=== PATIENT | male | born 2000 | race Caucasian/White ===

== ENCOUNTER 2019-12-16 20:11 | Emergency (ER) | payer SELFPAY ==
[2019-12-16 20:15] VITALS: PULSE 79; RESP 15; TEMP 37; O2SAT 96; BMI 18.8
[2019-12-16 20:21] VITALS: BP 124/79; PULSE 79; RESP 15; TEMP 37; O2SAT 96
--- NOTE | 2019-12-16 20:35 | PC.NURSE ---
patient provided saftey scrubs and socks. Patient changed out of all of his own cloths and changed into saftey clothing. Patient did not respond verbally to any questions, he loss prevention associate very slow, avoiding eye contact, looking down at the floor and slowly changed into saftey clothing. 2 bags of patients belongings locked up behind nurse station labled with patient label.
--- NOTE | 2019-12-16 20:49 | ED.PSYCH ---
HPI - Psych General Chief Complaint: Psychiatric Symptoms Stated Complaint: father states mental health crisis Time Seen by Provider: 12/16/19 20:13 Source: patient and family Mode of arrival: Ambulatory Limitations: other (Patient unwillingness to participate in exam) History of Present Illness HPI Narrative: Patient was not forthcoming in providing much HPI. He was brought to the emergency department by his biologic father and stepmother. They state that within the past 24-48 hours the patient took in Uber ride from [place] to the local area to [facility]. At some point last evening the patient made text to his biologic mother. I am unsure of the content of these text. I have asked the biologic father to contact the patient's mother to see if we can obtain these text. Apparently the patient slept at his biologic mother's house last evening. Is reported by his father and stepmother here in the ER that the patient has not spoken in the past 24 hours if not longer than that. They state that he has not eaten anything in the past 24 hours as well. The stepmother states that the patient has made comments to her that he has had thoughts of killing himself. I asked both the biologic father and stepmother to right their statements down which they have done. Patient has had 1 involuntary admission to mental health facility approximately 4 years ago. They also state that 1 year ago he was admitted to [facility] for an extended period of time for suicidal ideation/depression. They state that over the past year the patient has been living in [place]. It appears that he has been high functioning. Has a job. Has a girlfriend. Has not been on any medications or seen any mental health provider in the past year. Unsure why this is the case. Patient was brought in for concerns of his mental health. When I asked the patient any questions he only shakes his head yes or no. He shook his head no when asked if he was any pain. He shook his head yes when I asked if he knew where he was. He shook his head no when I asked if he drank any alcohol or did any other drugs. He shrugged his shoulders when asked him if he had thoughts of hurting himself. He had no response when I asked him if he was willing to have us find a mental health facility for him. Related Data Home Medications Medication Instructions Recorded Confirmed No Known Home Medications 12/17/19 12/17/19 Allergies Allergy/AdvReac Type Severity Reaction Status Date / Time No Known Drug Allergies Allergy Verified 12/16/19 20:46 Review of Systems Review of Systems ROS Unobtainable: Unobtainable due to mental status/LOC Patient History Medical History Depression (Acute) Social History Smoking Status: Never smoker Smoking Status: Never smoker alcohol intake frequency: 0-2 drinks per day Substance Use Type: marijuana Exam Initial Vital Signs Initial Vital Signs: Vital Signs Temperature 98.6 F 12/16/19 20:15 Pulse Rate 79 12/16/19 20:15 Respiratory Rate 15 12/16/19 20:15 Pulse Oximetry 96 12/16/19 20:15 Const General: No cooperative, healthy appearing, well developed, well groomed, No acute distress, No disheveled, No frail appearing, No ill appearing and well hydrated Nutritional Appearance: well nourished, not cachectic, not malnourished and not thin HENMT Head: normal to inspection and normocephalic Resp Effort & Inspection: normal respiratory effort Auscultation: clear to auscultation bilaterally Cardio Rate: regular rate Rhythm: regular rhythm GI Inspection: non-distended Palpation: soft Skin Lesions: no lesions Rashes: no rashes Neuro General: awake Gait: normal gait Extrem General: capillary refill normal and No edema Psych Appearance: grossly normal, well kempt and not disheveled Mental Status: other Speech and Movement: catatonic, mute and not restless Mood: other Affect: indifferent and other (Flat affect) Attitude: not cooperative, not belligerent, avoids eye contact and refuses to answer Thought Content: other (Unable to evaluate) Course Orders Ordered: ED Orders 12/16/19 21:03 Urine Drug Screen, Rapid Stat 12/16/19 21:04 Acetaminophen Stat Complete Blood Count AUTO DIFF Stat Comprehensive Metabolic Panel Stat Ethanol (ETOH) Stat Salicylate Stat Thyroid Stimulating Hormone Stat 12/16/19 23:24 EKG-12 Lead Stat 12/17/19 03:20 Consult to [facility] - Net Ui Developer Stat Vital Signs Vital signs: Vital Signs - 8 hr 12/17/19 00:00 12/17/19 04:04 Temperature 97.5 F L 98.0 F Pulse Rate 70 70 Respiratory Rate 14 16 Blood Pressure [Right Arm] 84/52 L 101/62 Pulse Oximetry 97 99 MDM - Psych Lab Data Attestation: I reviewed the patient's lab results. Result diagrams: 12/16/19 21:04 12/16/19 21:04 Labs: Lab Results 12/16/19 12/16/19 12/16/19 Range/Units 21:03 21:04 21:04 WBC 9.1 (4.5-11.0) X10^3/uL RBC 4.77 (4.5-5.9) X10^6/uL Hgb 14.8 (13.5-17.5) g/dL Hct 43.0 (41-53) % MCV 90.1 (80-100) fL MCH 30.9 (26-34) PG MCHC 34.3 (30-36) % RDW 13.6 (11.6-14.8) % Plt Count 220 (150-400) X10^3/uL Neut % (Auto) 76.6 H (50-75) % Lymph % (Auto) 16.8 L (25-40) % [place] % (Auto) 5.3 (3-14) % Eos % (Auto) 0.8 L (2-4) % Baso % (Auto) 0.5 (0-2) % Neut # (Auto) 7000 (5077-0946) /uL Lymph # (Auto) 1500 (2096-0032) /uL [place] # (Auto) 500 (0-900) /uL Eos # (Auto) 100 (0-450) /uL Baso # (Auto) 0 (0-100) /uL Sodium 139 (137-145) mmol/L Potassium 4.5 (3.4-5.1) mmol/L Chloride 102 (98-107) mmol/L Carbon Dioxide 22 (22-32) mmol/L BUN 22 H (9-20) mg/dL Creatinine 0.80 (0.66-1.25) mg/dL Estimated GFR > 60.0 (>60) mL/min BUN/Creatinine Ratio 27.5 H (6-22) Glucose 64 L (70-100) mg/dL Calcium 9.8 (8.4-10.2) mg/dL Total Bilirubin 0.6 (0.2-1.3) mg/dL AST 24 (17-59) IU/L ALT 23 (<50) IU/L Alkaline Phosphatase 76 (38-126) U/L Total Protein 8.5 H (6.3-8.2) g/dL Albumin 4.9 (3.5-5.0) g/dL Globulin 3.6 (1.7-4.1) g/dL Albumin/Globulin Ratio 1.4 (1.0-2.8) TSH (0.47-4.68) uIU/mL Salicylates < 1.0 (<20) mg/dL U Opiates 300ng/mL cut Negative (Negative) Ur Oxycodone Screen Negative (Negative) Urine Methadone Screen Negative (Negative) Acetaminophen < 10 L (10-30) ug/mL Ur Barbiturates Screen Negative (Negative) U Tricyclic Antidepress Negative (Negative) Ur Phencyclidine Scrn Negative (Negative) Ur Amphetamines Screen Negative (Negative) U Methamphetamines Scrn Negative (Negative) Ur MDMA Scrn (Ecstasy) Negative (Negative) U Benzodiazepines Scrn Negative (Negative) Urine Cocaine Screen Negative (Negative) U Marijuana (THC) Screen Positive H (Negative) Ethyl Alcohol < 10 ( - 10) mg/dL 12/16/19 Range/Units 21:04 WBC (4.5-11.0) X10^3/uL RBC (4.5-5.9) X10^6/uL Hgb (13.5-17.5) g/dL Hct (41-53) % MCV (80-100) fL MCH (26-34) PG MCHC (30-36) % RDW (11.6-14.8) % Plt Count (150-400) X10^3/uL Neut % (Auto) (50-75) % Lymph % (Auto) (25-40) % [place] % (Auto) (3-14) % Eos % (Auto) (2-4) % Baso % (Auto) (0-2) % Neut # (Auto) (9871-8137) /uL Lymph # (Auto) (5492-9663) /uL [place] # (Auto) (0-900) /uL Eos # (Auto) (0-450) /uL Baso # (Auto) (0-100) /uL Sodium (137-145) mmol/L Potassium (3.4-5.1) mmol/L Chloride (98-107) mmol/L Carbon Dioxide (22-32) mmol/L BUN (9-20) mg/dL Creatinine (0.66-1.25) mg/dL Estimated GFR (>60) mL/min BUN/Creatinine Ratio (6-22) Glucose (70-100) mg/dL Calcium (8.4-10.2) mg/dL Total Bilirubin (0.2-1.3) mg/dL AST (17-59) IU/L ALT (<50) IU/L Alkaline Phosphatase (38-126) U/L Total Protein (6.3-8.2) g/dL Albumin (3.5-5.0) g/dL Globulin (1.7-4.1) g/dL Albumin/Globulin Ratio (1.0-2.8) TSH 0.15 L (0.47-4.68) uIU/mL Salicylates (<20) mg/dL U Opiates 300ng/mL cut (Negative) Ur Oxycodone Screen (Negative) Urine Methadone Screen (Negative) Acetaminophen (10-30) ug/mL Ur Barbiturates Screen (Negative) U Tricyclic Antidepress (Negative) Ur Phencyclidine Scrn (Negative) Ur Amphetamines Screen (Negative) U Methamphetamines Scrn (Negative) Ur MDMA Scrn (Ecstasy) (Negative) U Benzodiazepines Scrn (Negative) Urine Cocaine Screen (Negative) U Marijuana (THC) Screen (Negative) Ethyl Alcohol ( - 10) mg/dL ECG Data Attestation: I personally reviewed and interpreted this ECG as follows: Prior ECG tracings: not available for review Interpretation: Sinus bradycardia Ventricular rate of 53 Normal axis Normal QRS Normal QTC No ST T wave changes MDM Narrative Medical decision making narrative: Patient not willing to provide any specific answers to mental health questions. He did shake his head yes when I asked him if it was okay if we marta some blood. He did not provide any response when asked him if it was okay if we try to find him a in patient facility. I feel that this makes him involuntary given the evidence provided by his biologic father and stepmother. Please see their statements written on other notes. Patient's labs positive for THC. TSH is low however he has no signs of hyperthyroidism. This is not an emergent issue and I feel is unrelated to his situation today this situation should be followed up by his primary doctor at a later time. Hyperthyroidism would be more associated with constantine, tachycardia, weight loss which patient does not express. He is more depressed which could be more of a symptom of hypothyroidism opposite of what his labs suggest today. Patient is not clinically malnourished despite concerns from his father about not eating for the past 24 hours. Patient is medically clear and ready to be evaluated by [facility]. 1227 AM: Patient is now sitting up in bed. He is eating a sandwich and some pudding. He has been talking to the CAKE FORMER it has been his watch. I went in and talked with the patient. He states that he is feeling ?a little bit ?better. He states that his current address is [facility]. When I asked him if he could tell me more about the situation that brought him here he became very quiet again and said ?not right now ?. 0328 AM: Patient was evaluated by [facility]. Apparently was much more cooperative and open speaking with them. He did state that he was willing to be admitted voluntarily. [facility] does have a bed except some however they require insurance pre-approval. Social work consult placed. Care turned over to day provider for disposition once evaluated by social Work Discharge Plan Departure Patient Disposition: Xfer Psychiatric Hosp Clinical Impression: Depression Qualifiers: Depression Type: unspecified Qualified Code(s): F32.9 - Major depressive disorder, single episode, unspecified
--- NOTE | 2019-12-16 21:00 | CM.MNRNOTE ---
patient lying on gurney with pillow on his chest
--- NOTE | 2019-12-16 21:05 | PC.NURSE ---
pt is tolerating lab draw
--- NOTE | 2019-12-16 21:07 | PC.NURSE ---
Unable to contract for safety. Pt indicated through nodding that he does not want treatment and is here because his father brought him here. entry level project coordinator phoned to request a sitter for NOC shift, Wenceslao sent out for stat sitter. Pt on Q15 minute checks for safety.
--- NOTE | 2019-12-16 21:10 | PC.NURSE ---
Pt given snacks, water, juice. Indicates that he has no food preferences/allergies.
[2019-12-16 21:44] LABS: Add Manual Diff / Slide Review NO; Basophils Absolute Auto 0 /uL (0-100); Basophils Percent Auto 0.5 % (0-2); Eosinophils Absolute Auto 100 /uL (0-450); Eosinophils Percent Auto 0.8 % (2-4); Hemoglobin 14.8 g/dL (13.5-17.5); Lymphocytes Absolute Auto 1500 /uL (1100-4500); Lymphocytes Percent Auto 16.8 % (25-40); Mean Corpuscular HGB Conc 34.3 % (30-36); Mean Corpuscular Hemoglobin 30.9 PG (26-34); Mean Corpuscular Volume 90.1 fL (80-100); Monocytes Absolute Auto 500 /uL (0-900); Monocytes Percent Auto 5.3 % (3-14); Neutrophils Absolute Auto 7000 /uL (1500-7000); Neutrophils Percent Auto 76.6 % (50-75); Platelet Count 220 X10^3/uL (150-400); Red Blood Cell Count 4.77 X10^6/uL (4.5-5.9); Red Cell Distribution Width 13.6 % (11.6-14.8); White Blood Cell Count 9.1 X10^3/uL (4.5-11.0)
--- NOTE | 2019-12-16 21:46 | PC.NURSE ---
I asked pt to give us a urine sample he shook his head yes. Urine sent down to the lab for RDS. Pt did not reply verbally to any questions. Pt given warm blankets
[2019-12-16 21:56] LABS: UR Morphine/Opiate cutoff 300 Negative (Negative); Ur Creatinine Normal (Normal); Ur Specific Gravity Normal (Normal); Urine Amphetamines Negative (Negative); Urine Barbiturates Negative (Negative); Urine Benzodiazepines Negative (Negative); Urine Cocaine Negative (Negative); Urine MDMA Negative (Negative); Urine Methadone Negative (Negative); Urine Methamphetamines Negative (Negative); Urine Oxycodone Negative (Negative); Urine Phencyclidine Negative (Negative); Urine Tetrahydrocannabinol Positive (Negative); Urine Tricyclic Antidepressant Negative (Negative); Urine pH Normal (Normal)
[2019-12-16 21:56] LABS: Acetaminophen < 10 ug/mL (10-30); Alanine Aminotransferase 23 IU/L (<50); Albumin 4.9 g/dL (3.5-5.0); Albumin Globulin Ratio 1.4 (1.0-2.8); Alkaline Phosphatase 76 U/L (38-126); Aspartate Aminotransferase 24 IU/L (17-59); BUN Creatinine Ratio 27.5 (6-22); Bilirubin Total 0.6 mg/dL (0.2-1.3); Blood Urea Nitrogen 22 mg/dL (9-20); Calcium 9.8 mg/dL (8.4-10.2); Carbon Dioxide 22 mmol/L (22-32); Chloride 102 mmol/L (98-107); Estimated Glomerular Filt Rate > 60.0 mL/min (>60); Ethanol (ETOH) < 10 mg/dL; Globulin 3.6 g/dL (1.7-4.1); Glucose 64 mg/dL (70-100); HEMOLYSIS < 15 (0-50); Potassium 4.5 mmol/L (3.4-5.1); Salicylate < 1.0 mg/dL (<20); Sodium 139 mmol/L (137-145); Total Protein 8.5 g/dL (6.3-8.2)
--- NOTE | 2019-12-16 22:00 | PC.NURSE ---
pt lying on gurney with head under blankets
[2019-12-16 22:27] LABS: Thyroid Stimulating Hormone 0.15 uIU/mL (0.47-4.68)
--- NOTE | 2019-12-16 22:34 | PC.NURSE ---
pt lying on gurney with blanket over his head. Lights are dimmed. Pt is under constant observation by this INSTALLER HELPER
[2019-12-17] VITALS: BP 84/52; PULSE 70; RESP 14; TEMP 36.4; O2SAT 97
--- NOTE | 2019-12-17 00:08 | PC.NURSE ---
Pt is calm and has not expressed that he wants to harm himself at this time. Pt asked TRANSFORMER COIL WINDER if he was allowed to go anywhere else (outside Pt ED room) and TRANSFORMER COIL WINDER informed patient that the Nurse would be in to speak with him about his condition and what was expected to happen next. Pt was pleasant and willing to talk. Pt is now sitting up in a high fowlers position. Pt is drinking water, eating string cheese and has been given crayons and paper.
--- NOTE | 2019-12-17 00:09 | PC.NURSE ---
Pt is now speaking. The sitter notified me that the pt was asking about the plan of care. When I went in to speak to him, he stated, just curious. Pt updated to plan: that DCR should arrive within an hour, will speak with him, and will form a plan from there. Pt agreeable. Pt has not eaten any of the snacks provided earlier but has had some water to drink.
--- NOTE | 2019-12-17 01:00 | PC.NURSE ---
Pt is speaking with the DCR, Edward. Pt is sitting in high fowelers and has finished eating his string cheese, vanilla pudding, and half sandwich. He has drank all of his grape juice and still has about 100cc of water left. Pt appears calm and willing to speak with DCR.
--- NOTE | 2019-12-17 02:12 | PC.NURSE ---
Pt was offered oral care accessaries. All doors are open (no doors locked) and pt is up and is still under supervision with oral care. 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 Pt awake and oriented.
--- NOTE | 2019-12-17 03:00 | PC.NURSE ---
Pt is sitting in high fowlers position. Pt is calm and was given his cell phone and [employer] switch after speaking with Edward PRINGLE. Pt has finished most of the food newly requested. Pt is alert and oriented. All doors are open and pt is till under supervision.
--- NOTE | 2019-12-17 03:16 | PC.NURSE ---
I received a call from Arin at [facility] who stated that the patient is approved pending approval from Medicaid. They will need the name of the person and how many days authorized prior to giving an ETA.
--- NOTE | 2019-12-17 03:22 | PC.NURSE ---
pt stretching in room
--- NOTE | 2019-12-17 03:38 | PC.NURSE ---
pt watching movie on phone. Door is open and lights are off
[2019-12-17 04:04] VITALS: BP 101/62; PULSE 70; RESP 16; TEMP 36.7; O2SAT 99
--- NOTE | 2019-12-17 04:05 | PC.NURSE ---
Addendum entered by Brie Wolf R.N. 12/17/19 11:02: Patient woken up for CBG check, CBG 65, patient eating breakfast now. CLEAN UP PERSON in to speak with patient. Original Note: Pt is sitting up listening to music on his phone through his earphones. Pt states that he will try to get some sleep now that DCR, Edward, has come back to speak one last time with him. Pt is alert and oriented. Pt is still under supervision and all doors are open.
--- NOTE | 2019-12-17 05:01 | PC.NURSE ---
Pt is attempting to sleep. Pt is currently left lateral. All doors are open and pt is still under supervision.
--- NOTE | 2019-12-17 08:15 | PC.NURSE ---
Addendum entered by Brie Wolf R.N. 12/17/19 12:32: Report called to [facility]. Addendum entered by Brie Wolf R.N. 12/17/19 12:24: Patient taken by ambulance staff for transport to [place]. Ambulance staff given patients two bags of belongings. Addendum entered by Brie Wolf R.N. 12/17/19 11:31: Patient awake, lying down, using cell phone. Patient ate his breakfast ambulated to bathroom. Patient updated by WILD LIFE PHOTOGRAPHER on plan for transfer to [place]. Addendum entered by Brie Wolf R.N. 12/17/19 09:08: Patient woke up for vitals and breakfast. Alert, oriented,calm, WILD LIFE PHOTOGRAPHER in to see patient. Original Note: Patient sleeping on left side, call light in reach. Continue 1:1 sitter.
[2019-12-17 08:34] VITALS: BP 107/62; PULSE 84; RESP 16
[2019-12-17 11:09] VITALS: BP 111/67; PULSE 55; RESP 16; TEMP 36.2
== END 2019-12-17 12:25 ==
PROVIDERS: Emergency Medicine; Emergency Provider Emergency Medicine
DX: F32.9 Major depressive disorder, single episode, unspecified (principal); R00.1 Bradycardia, unspecified
CPT/HCPCS: 36415; 80053; 80305; 80320; 80329; 82962; 84443; 85025; 93005; 99285; G0480

== ENCOUNTER 2025-09-26 13:42 | Emergency (ER) | payer OTHER, SELFPAY ==
[2025-09-26 13:46] VITALS: BP 121/79; PULSE 79; RESP 14; TEMP 36.7; O2SAT 100; BMI 20.3
--- NOTE | 2025-09-26 14:00 | ED_ITS ---
<Statement entered by Darron Vaz, DO - 09/27/25 07:48>
--- NOTE | 2025-09-26 14:00 | ED.PSYCH ---
HPI - Psych General Chief Complaint: Psychiatric Symptoms Stated Complaint: Mental Eval Time Seen by Provider: 09/26/25 13:46 Source: patient Mode of arrival: Ambulatory History of Present Illness HPI Narrative: Jameson Gray is a very pleasant 25-year-old male with a past medical history of depression with 2 prior suicide attempts who presents to the emergency department for concern of his mental health. He is not having an active suicidal plan. The patient lives on [address] [facility] with his mom and sister. He has struggled with severe depression since he was 13 years old and he has attempted suicide in the past twice by attempting to jump off a [place]. He did not carry out either of these attempts however he was admitted to [facility] for both of these attempts. He reports that he typically does well inpatient but then he does not sustain this once he goes home. He has been off antidepressants since May of this year. He takes no medications currently. Over the last year he has dealt with the suicide of his stepfather and the of his godfather. He does not experience homicidal ideation or hallucinations. He did attempt to check himself into [place] a few days ago but at that time he did not have an active suicide plan so he did not meet the requirements. At this time he still does not have an active plan however he is very concerned that he is going to get to the point of a plan and would like to talk to a medial professional, he does not currently have a PCP. He has lots of suicidal thoughts and ideation always but they are getting more often. He denies any chest pain, shortness of breath, fevers, chills, flu-like symptoms. He is here with his sister. Related Data Home Medications ?Medication ?Instructions ?Recorded ?Confirmed No Known Home Medications 12/17/19 12/17/19 Allergies Allergy/AdvReac Type Severity Reaction Status Date / Time No Known Drug Allergies Allergy Verified 09/26/25 13:46 Review of Systems Review of Systems ROS Unobtainable: All systems reviewed & are unremarkable except as noted in HPI and below Patient History Medical History Depression Social History Smoking Status: Unknown if ever smoked Smoking Status: Unknown if ever smoked alcohol intake frequency: 0-2 drinks per day Exam Narrative Exam Narrative: GENERAL: 25 year old patient appears stated age. Well-developed patient, in no acute distress. HEAD: Atraumatic. Normocephalic. EYES: PERRL. Extraocular motions intact. No scleral icterus. No injection or drainage. ENT: Nose without bleeding, purulent drainage. Throat without erythema, tonsillar hypertrophy or exudate. Airway patent. NECK: Trachea midline. Cervical ROM intact. CARDIOVASCULAR: Regular rate and rhythm. RESPIRATORY: ?Nonlabored respirations. ?Speaking in clear, full sentences. ?Clear to auscultation. Breath sounds equal bilaterally. No wheezes, rales, or rhonchi. ? BACK: Nontender without deformity or crepitance. No flank tenderness. NEURO: AOx3. ?Clear speech. ?Moves all 4 extremities appropriately. SKIN: No rash or erythema of visible areas Initial Vital Signs Initial Vital Signs: Vital Signs Temperature 98.0 F 09/26/25 13:46 Pulse Rate 79 09/26/25 13:46 Respiratory Rate 14 09/26/25 13:46 Blood Pressure 121/79 09/26/25 13:46 Pulse Oximetry 100 09/26/25 13:46 Oxygen Delivery Method Room Air 09/26/25 13:46 Course Orders Ordered: ED Orders 09/26/25 13:58 Consult to FOREIGN EXCHANGE TRADER - Tierce Filler Routine 09/26/25 14:00 COVID19 -Nasal RAPID Stat 09/26/25 14:09 Urine Drug Screen, Rapid Stat 09/26/25 14:10 Complete Blood Count AUTO DIFF Stat Comprehensive Metabolic Panel Stat Ethanol (ETOH) Stat TSH w/ Reflex to FT4 Stat Vital Signs Vital signs: Vital Signs - 8 hr 09/26/25 13:46 09/26/25 18:06 Temperature 98.0 F Pulse Rate 79 71 Respiratory Rate 14 Blood Pressure 121/79 101/58 L Pulse Oximetry 100 100 Oxygen Delivery Method Room Air Room Air MDM - Psych Medical Records Attestation: I reviewed the patient's medical records. Lab Data 09/26/25 14:10 09/26/25 14:10 Labs: Lab Results 09/26/25 09/26/25 09/26/25 Range/Units 14:00 14:09 14:10 WBC 6.2 (4.5-11.0) X10^3/uL RBC 4.89 (4.5-5.9) X10^6/uL Hgb 15.1 (13.5-17.5) g/dL Hct 43.7 (41-53) % MCV 89.3 (80-100) fL MCH 30.9 (26-34) PG MCHC 34.6 (30-36) % RDW 12.5 (11.6-14.8) % Plt Count 264 (150-400) X10^3/uL Neut % (Auto) 57.4 (50-75) % Lymph % (Auto) 23.7 L (25-40) % Eagle % (Auto) 11.2 (3-14) % Eos % (Auto) 7.2 H (2-4) % Baso % (Auto) 0.5 (0-2) % Neut # (Auto) 3600 (8162-9436) /uL Lymph # (Auto) 1500 (2161-5883) /uL Eagle # (Auto) 700 (0-900) /uL Eos # (Auto) 400 (0-450) /uL Baso # (Auto) 0 (0-100) /uL Sodium 138 (137-145) mmol/L Potassium 4.1 (3.4-5.1) mmol/L Chloride 103 (98-107) mmol/L Carbon Dioxide 27 (22-32) mmol/L BUN 13 (9-20) mg/dL Creatinine 0.81 (0.66-1.25) mg/dL Estimated GFR > 60 (>60) mL/min BUN/Creatinine Ratio 16.0 (6-22) Glucose 97 (70-99) mg/dL Calcium 9.8 (8.4-10.2) mg/dL Total Bilirubin 0.3 (0.2-1.3) mg/dL AST 20 (17-59) IU/L ALT 14 (<50) IU/L Alkaline Phosphatase 65 (38-126) U/L Total Protein 8.6 H (6.3-8.2) g/dL Albumin 5.1 H (3.5-5.0) g/dL Globulin 3.5 (1.7-4.1) g/dL Albumin/Globulin Ratio 1.5 (1.0-2.8) TSH 0.87 (0.47-4.68) uIU/mL U Opiates 300ng/mL cut Positive H (Negative) Ur Oxycodone Screen Negative (Negative) Urine Methadone Screen Negative (Negative) Ur Barbiturates Screen Negative (Negative) U Tricyclic Antidepress Negative (Negative) Ur Phencyclidine Scrn Negative (Negative) Ur Amphetamines Screen Negative (Negative) U Methamphetamines Scrn Negative (Negative) Ur MDMA Scrn (Ecstasy) Negative (Negative) U Benzodiazepines Scrn Negative (Negative) Urine Cocaine Screen Negative (Negative) U Marijuana (THC) Screen Positive H (Negative) Urine pH Normal (Normal) Urine Specific Miles Normal (Normal) Ethyl Alcohol < 10 (<10) mg/dL Ur Creatinine Normal (Normal) SARS-CoV-2 (PCR) Negative (Negative) MDM Narrative Medical decision making narrative: 25-year-old male with a past medical history of depression with 2 prior suicide attempts who presents to the emergency department for concern of his mental health. He is dealing with vague suicidal ideation but no suicidal plan. Differential diagnosis includes but isn't limited to depression, anxiety, suicidal ideation, etc. On exam the patient is in no acute distress, nontoxic appearing, vital signs appropriate. He is not experiencing any pain or symptoms concerning for illness. This time he is not seeking inpatient psychiatric care but is interested in discussing possible resources with us here in the ED. We will obtain baseline psychiatric medical clearance. Patient and his sister who he lives with in addition to myself and the social media marketing analyst had extensive discussions and created an outpatient safety plan. At this time he is not interested in voluntary psychiatric admission and I also do not believe that he needs to be admitted involuntarily. He does not currently have an active suicidal plan and he feels hopeful with the follow up resources that our social media marketing analyst was able to provide him with. Discussed extensively with him and his sister that if he has any concerns to return to the ER at that time. He verbalized understanding all information and is agreeable with the plan. He is stable for discharge home. Discharge Plan Departure Patient Disposition: Home Clinical Impression: Depression Qualifiers: Depression Type: unspecified Qualified Code(s): F32.A - Depression, unspecified Instructions: DI for Suicidal Ideation-Adult Activity Restrictions/Additional Instructions: Dear Mr. Gray, Thank you so much for coming to the emergency room today. Your lab work today was all reassuring. As we discussed, we have set you up with an outpatient safety plan. It is very important to use these outpatient resources, and follow up with your therapist and a psychiatrist and a primary care doctor if and when possible. However we want you to understand that if you have any concerns, development of worsening depression or suicidal ideations, we woke me back to the emergency room to help facilitate inpatient treatment. Please follow up with your primary care doctor within the next 2-3 days for ER follow-up. (If you do not have a PCP you can call [phone]. ?to schedule an appointment with an [facility] Primary Care Provider) IF YOU DEVELOP ANY NEW OR WORSENING SYMPTOMS, RETURN TO THE ER! Please read the attached instructions, they highlight more specific treatments and interventions for you at home. Thank you for letting me participate in your care, Dotty Landon PA-C Prescriptions: No Action No Known Home Medications Stand Alone Forms: Patient Portal/API
[2025-09-26 14:24] LABS: Ur Specific Gravity Normal (Normal)
[2025-09-26 14:25] LABS: UR Morphine/Opiate cutoff 300 Positive (Negative); Urine MDMA Negative (Negative); Urine Methamphetamines Negative (Negative); Urine Tetrahydrocannabinol Positive (Negative); Urine Tricyclic Antidepressant Negative (Negative)
[2025-09-26 14:34] LABS: Alanine Aminotransferase 14 IU/L (<50); Albumin 5.1 g/dL (3.5-5.0); Albumin Globulin Ratio 1.5 (1.0-2.8); Alkaline Phosphatase 65 U/L (38-126); Blood Urea Nitrogen 13 mg/dL (9-20); Calcium 9.8 mg/dL (8.4-10.2); Carbon Dioxide 27 mmol/L (22-32); Chloride 103 mmol/L (98-107); Estimated Glomerular Filt Rate > 60 mL/min (>60); Ethanol (ETOH) < 10 mg/dL (<10); Globulin 3.5 g/dL (1.7-4.1); Glucose 97 mg/dL (70-99); HEMOLYSIS < 15 (0-50); Potassium 4.1 mmol/L (3.4-5.1); Sodium 138 mmol/L (137-145); Total Protein 8.6 g/dL (6.3-8.2)
[2025-09-26 14:36] LABS: Add Manual Diff / Slide Review NO; Hematocrit 43.7 % (41-53); Hemoglobin 15.1 g/dL (13.5-17.5); Lymphocytes Absolute Auto 1500 /uL (1100-4500); Mean Corpuscular HGB Conc 34.6 % (30-36); Mean Corpuscular Hemoglobin 30.9 PG (26-34); Mean Corpuscular Volume 89.3 fL (80-100); Platelet Count 264 X10^3/uL (150-400)
[2025-09-26 14:39] LABS: COVID19 -Nasal RAPID Negative (Negative)
[2025-09-26 15:08] LABS: TSH w/ Reflex to FT4 0.87 uIU/mL (0.47-4.68)
--- NOTE | 2025-09-26 17:30 | CM.SWNOTE ---
ED MECHANICAL PENCILS ASSEMBLER Assessment Note: MECHANICAL PENCILS ASSEMBLER - Multiple Games Dealer Assessment MECHANICAL PENCILS ASSEMBLER/Multiple Games Dealer Assessment Time Spent with Patient Start date 09/26/25 Visit Start Time 13:46 End date 09/26/25 Visit End Time 14:05 Total time Care 20 minutes Management spent on patient visit-in minutes Mental Health Screening Include Onset, Duration, Intensity Presenting Problem Patient presented to the ED via POV, requesting assistance with crisis stabilization and possible inpatient hospitalization. Precipitating Event( Patient explains they are experiencing similar symptoms s) from previous suicidal ideation/attempts in the past. Patient explains having an attempt in 2015 and in 2020, was hospitalized both times at [facility]. Patient explains they have been feeling triggered by anything suicide related seen in media due to their attempts and an upcoming anniversary of his stepfathers suicide last winter. Patient states his stepfather via self-inflicted gunshot wound in their family home; pt just moved back home to [facility] from [place] in May 2025. Patient also states his godfather in the last few weeks due to liver cancer. Patient reports he is not currently taking any medications for psych, stopped taking them in May. Patient acknowledges not having a good follow up after inpatient stays and continued MH management with therapy or medication. Patient Strengths Patient is communicative and cooperative during assessment. Current Behavioral Yaakov Whalen [facility] - ph# [phone]. Health Provider(s) Include Facility, Provider, Ph. # Psych. Hx Mental Patient states he dropped out of high school at 13yo Health and [employer] due to his severe depression and anxiety. Dependency Family Hx of None reported. Behavioral Abuse Psychiatric 2015 (14yo) - [facility] for near suicide attempt. Plan Hospitalizations ( was to jump off of [employer] on [facility]. date(s)/location) 2020 (20yo) - [facility] for neat suicide attempt. Plan was to jump off of [employer] on [facility]. Psychosocial Patient is a 25yo male, resident of [facility] with information & his mother and sister. Support Systems School/Work Patient is not currently working. Legal Concerns Legal Matters - None reported. Outstanding Issues Mental Status Orientation (Person/ AOx3 Place/Time) Affect (Congruent Anxious, flat, congruent with mood with Mood?) Thought Content - None reported, none identified during assessment. Specify/Describe Obsessions, Delusions, Hallucinations Thought Processes ( Logical, coherent Logical-Coherent- Goal Directed- Detailed-Tangential- Circumstantial- Logical-Disorganized -Thought Blocking) Speech (Normal-Slow- Normal Zbfjqlq-Gdmcu-Pcfo- Loud-Pressured) Motor (Normal- Normal Oxqhydptz-Pdmd-Qvrlk ) Insight (Good-Fair- Good Poor/Limited) Judgement (Good-Fair Fair -Poor/Limited) Impulse Control ( Adequate Adequate-Impaired) Memory (Immediate- Intact Recent-Remote, Impaired-Intact) Concentration ( Intact Intact-Impaired) Attention (Intact- Intact Impaired) Behavior ( Appropriate Appropriate- Inappropriate) Additional Comment Patient is calm, cooperative and communicative during assessment. Risk Assessment Suicidal Ideation ( Yes Plan) Homicidal Ideation ( No Plan) Comment [place]-SUICIDE SEVERITY RATING SCALE 1) Have you wished you were or wished you could go to sleep and not wake up? YES 2) Have you actually had any thoughts of killing yourself? YES 3) Have you been thinking about how you might do this? NO 4) Have you had these thoughts and had some intention of acting on them? NO 5) Have you started to work out or worked out the details of how to kill yourself? Do you intend to carry out this plan? NO 6) Have you ever done anything, started to do anything, or prepared to do anything to end your life? NO If YES, ask: Was this within the past three months? NO Intervention Intervention Reviewed chart and discussed with ED Provider pt's medical status and discharge needs. ED MECHANICAL PENCILS ASSEMBLER meets with patient. Patient endorses feeling uneasy with depressive symptoms as they are similar to what he experienced during last suicide attempts. Patient explains per the direction of their counselor, he called [facility] and they were screened as not meeting criteria for inpatient treatment. ED MECHANICAL PENCILS ASSEMBLER and patient discuss goals of care. Patient explains they are agreeable to receive inpatient behavioral health hospitalization at this time. At this time, it is the opinion of this MECHANICAL PENCILS ASSEMBLER that patient would benefit from inpatient psychiatric hospitalization for SI and crisis stabilization. MECHANICAL PENCILS ASSEMBLER informs ED provider, Dotty Landon PA-C, who indicates agreement. Plan RA Plan Once patient is medically clear, ED staff will attempt to find inpatient placement for patient. TIP Simpson
[2025-09-26 18:06] VITALS: BP 101/58; PULSE 71; O2SAT 100
--- NOTE | 2025-09-26 18:12 | CM.SWNOTE ---
ED SOLE SKIVER Note: Per ED Provider, pt is medically cleared for discharge planning. SOLE SKIVER spoke with pt and sisterSixto. Discussed medical clearance and provided to options for care: 1. Inpatient referral 2. safety plan with [facility] follow up. Patient spoke to sister and decided on safety plan with [facility] OT. Pt contracted for safety and agreed to referrals sent to [facility] and [facility]. SOLE SKIVER sent referral via webform to [facility], provided pt with contact information and follow up. SOLE SKIVER called [facility] Crisis Line and spoke with Fabi. Requested a [facility] follow up call on 09/27 at 12:00-2:00pm. Provided pt information. SOLE SKIVER provided pt with [facility] Crisis line number and educated both pt and sister on how to utilize if symptoms increase. Plan: Pt to discharge home with sister to transport, follow up with [facility] and [facility] IOP. TIP Simpson
== END 2025-09-26 18:08 | disposition home or self-care (01) ==
PROVIDERS: Emergency Provider Physician Assistant
DX: F32.A Depression, unspecified (principal)
CPT/HCPCS: 36415; 80053; 80305; 80320; 84443; 85025; 87635; 99281; 99284

== ENCOUNTER 2025-10-31 16:11 | Emergency (ER) | payer OTHER, SELFPAY ==
[2025-10-31 16:15] VITALS: BP 128/57; PULSE 116; RESP 18; TEMP 37.2; O2SAT 97
--- NOTE | 2025-10-31 17:26 | CM.SWNOTE ---
ED CHIEF OF SURGERY Assessment Note CHIEF OF SURGERY - Integrated Logistics Support Manager Assessment CHIEF OF SURGERY/Integrated Logistics Support Manager Assessment Time Spent with Patient Start date 10/31/25 Visit Start Time 16:15 End date 10/31/25 Visit End Time 16:30 Total time Care 20 minutes Management spent on patient visit-in minutes Mental Health Screening Include Onset, Duration, Intensity Presenting Problem Patient presents to ED via private vehicle with mother and sister. It is reported that family has concern for patient's constant and increasing SI with thoughts of plans, intent, ways and means. Precipitating Event( Patient had similar presentation to ED on 09/26/25 and s) was able to safety plan and discharged with referral for Critical access hospital telehealth and [facility] follow up. Patient endorses that he disengaged in outpatient services in recent weeks, stopped taking rx prescribed by Psychiatrist and stopped attending therapy appts. Patient endorses that they recently broke up with their partner and moved back home with their mom recently. Patient presents with increased thoughts of hopelessness. Per EMR, patient's stepfather by suicide last year and patient's godfather recently. Patient Strengths Patient has support from family and outpatient MH team available to him. Current Behavioral Patient has been seeing therapist Yaakov Whalen MA, Health Provider(s) [facility] (Ph. # [phone]) every other week via phone Include Facility, but states that he stopped answering calls recently. Provider, Ph. # Patient has been seeing Psychiatrist LIANG Alonso (Ph. # [phone]), it is reported that patient was recently prescribed Venlafaxine by this provider but recently stopped taking rx. Last month patient was referred to Critical access hospital services and it is reported that patient has disengaged in services. Psych. Hx Mental Patient has hx of Depression, Anxiety, SI and suicide Health and Chemical attempts. Dependency Patient has hx of Marijuana use. Family Hx of None reported Behavioral Abuse Psychiatric Patient has hx of hospitalization at [facility] in 2016 Hospitalizations ( after near suicide attempt, and at [facility] in 2020 date(s)/location) after near suicide attempt. Psychosocial Patient is 25 y/o male who is currently residing with information & mother and sister on [facility]. Patient has mother Support Systems and sister as supports. School/Work Patient is currently not working Legal Concerns Legal Matters - None reported Outstanding Issues Mental Status Orientation (Person/ A/Ox4 Place/Time) Stated Mood ok Affect (Congruent flat with Mood?) Thought Content - Patient denies concern for visual or auditory Specify/Describe hallucinations Obsessions, Delusions, Hallucinations Thought Processes ( coherent Logical-Coherent- Goal Directed- Detailed-Tangential- Circumstantial- Logical-Disorganized -Thought Blocking) Speech (Normal-Slow- soft, slow to respond Lofcbte-Bimhz-Gvhg- Loud-Pressured) Motor (Normal- normal Mlvywobgo-Bcyf-Exfmt ) Insight (Good-Fair- limited Poor/Limited) Judgement (Good-Fair limited -Poor/Limited) Impulse Control ( adequate Adequate-Impaired) Memory (Immediate- intact, not formally assessed Recent-Remote, Impaired-Intact) Concentration ( intact Intact-Impaired) Attention (Intact- intact Impaired) Behavior ( appropriate Appropriate- Inappropriate) Additional Comment Patient presents as calm, cooperative and communicative . Patient presents with poor eye contact. Risk Assessment Suicidal Ideation ( Yes Plan) Homicidal Ideation ( No Plan) Comment Patient denies HI. Patient endorses current SI, re-occurring and increasing SI. It is reported that SI was more severe yesterday. Patient initially did not want to inform CHIEF OF SURGERY patient's thoughts of how he would kill himself but then endorses thoughts of going up to the [place] and jumping off. Patient endorses hx of attempt in 2015, he states he wrote a suicide note, left in the middle of the night and hitchhiked to the [place] and his grandmother called 911 and patient was found by [employer] and he went to [facility] for inpatient. In 2020 patient had similar intent and near attempt to go to the [place] to [facility] but patient chose to contact his family and sought treatment at [facility]. Intervention Intervention CHIEF OF SURGERY enters triage to meet with patient, present in room is patient and agriculturist. Patient states that his family is concerned for his mental health and they brought patient to the ED. Patient endorses constant and increasing SI with intent , thoughts of plans and ways and means. Patient has hx of near suicide attempts with similar plan to go to [facility] on [facility] and jump . Patient endorses that he stopped attending outpatient sessions and stopped taking his rx. Patient presents with flat affect, poor eye contact and is not able to contract for safety at this time. CHIEF OF SURGERY discusses inpatient hospitalization and patient endorses preference to be voluntary. It is the opinion of this CHIEF OF SURGERY that patient is appropriate for and will benefit from inpatient hospitalization for safety, crisis stabilization and medication management. CHIEF OF SURGERY reviews this with ED provider Dr. Heath who indicates agreement and understanding Plan RA Plan CHIEF OF SURGERY to seek inpatient bed upon medical clearance. Naye Lomas, CANTEEN MANAGER
[2025-10-31 17:37] LABS: Add Manual Diff / Slide Review NO; Hematocrit 40.9 % (41-53); Hemoglobin 14.3 g/dL (13.5-17.5); Lymphocytes Absolute Auto 1700 /uL (1100-4500); Mean Corpuscular HGB Conc 34.8 % (30-36); Mean Corpuscular Hemoglobin 31.0 PG (26-34); Mean Corpuscular Volume 89.0 fL (80-100); Platelet Count 259 X10^3/uL (150-400)
[2025-10-31 17:56] LABS: Appearance Urine UA CLEAR; Bilirubin Urine UA 1+ (NEGATIVE); Color Urine UA YELLOW; Glucose Urine UA NEGATIVE (Negative); Ketones Urine UA 2+ (NEGATIVE); Leukocyte Esterase Urine UA NEGATIVE (NEGATIVE); Nitrite Urine UA NEGATIVE (Negative); Occult Blood Urine UA NEGATIVE (Negative); Protein Urine UA TRACE (Negative); Specific Gravity Urine UA 1.020 (1.000-1.035); Urobilinogen Urine UA 1.0 E.U./dL (0.2); pH Urine UA 7.0 (4.5-8.0)
[2025-10-31 17:59] LABS: Acetaminophen < 10 ug/mL (10-30); Alanine Aminotransferase 14 IU/L (<50); Albumin 4.9 g/dL (3.5-5.0); Albumin Globulin Ratio 1.5 (1.0-2.8); Alkaline Phosphatase 63 U/L (38-126); Blood Urea Nitrogen 16 mg/dL (9-20); Calcium 9.4 mg/dL (8.4-10.2); Carbon Dioxide 24 mmol/L (22-32); Chloride 104 mmol/L (98-107); Estimated Glomerular Filt Rate > 60 mL/min (>60); Ethanol (ETOH) < 10 mg/dL (<10); Globulin 3.2 g/dL (1.7-4.1); Glucose 100 mg/dL (70-99); HEMOLYSIS < 15 (0-50); Potassium 4.0 mmol/L (3.4-5.1); Salicylate < 1.0 mg/dL (<20); Sodium 138 mmol/L (137-145); Total Protein 8.1 g/dL (6.3-8.2)
[2025-10-31 18:04] LABS: COVID19 -Nasal RAPID Negative (Negative)
--- NOTE | 2025-10-31 18:13 | ED_ITS ---
HPI - Psych <Bushra Heath DO - Last Filed: 11/01/25 08:12> General Chief Complaint: Psychiatric Symptoms Stated Complaint: Psych eval Time Seen by Provider: 10/31/25 18:13 Source: patient, RN notes reviewed and old records reviewed Mode of arrival: Ambulatory Limitations: no limitations History of Present Illness HPI Narrative: 25-year-old male past medical history of depression with prior suicide attempt presents with complaint of suicidal ideation patient does have a plan. States he lives on [facility] would jump off [facility]. Patient denies any homicidal ideation, denies any hallucinations. He is seeking inpatient placement currently. He has been off his antidepressants for some time he did use to take antidepressants. He is not on any medications currently. States he uses tobacco, occasional alcohol, uses marijuana denies any recreational drugs otherwise. Patient denies any other symptoms currently. He is accompanied by his family. Patient has had prior inpatient stay for psychiatric care. Related Data Home Medications ?Medication ?Instructions ?Recorded ?Confirmed No Known Home Medications 12/17/1911/22 Allergies Allergy/AdvReac Type Severity Reaction Status Date / Time No Known Drug Allergies Allergy Verified 09/26/25 13:46 Review of Systems <Bushra Heath DO - Last Filed: 11/01/25 08:12> Review of Systems ROS Unobtainable: All systems reviewed & are unremarkable except as noted in HPI and below Patient History <Bushra Heath DO - Last Filed: 11/01/25 08:12> Medical History (Updated 10/31/25 @ 18:22 by Bushra Heath DO) Depression alcohol intake frequency: 0-2 drinks per day Exam <Bushra Heath DO - Last Filed: 11/01/25 08:12> Narrative Exam Narrative: GENERAL: Alert and oriented x three, male, soft spoken. HEENT: Head normocephalic, atraumatic, EOMI, pupils reactive, face symmetric, moist mucous membranes NECK: Supple, full range of motion CARDIOVASCULAR: Regular rate and rhythm without murmurs, rubs or gallops. RESPIRATORY: Breath sounds equal bilaterally, no wheezes rales or rhonchi. ABDOMEN: Soft, nontender. Normoactive bowel sounds all 4 quadrants. No guarding or rebound, rigidity, no mass : No CVA tenderness EXTREMITIES: Normal range of motion, no clubbing or edema. Neurovascularly intact NEUROLOGICAL: Cranial nerves II through XII grossly intact. Moving all extremities SKIN: Warm, dry, no petechiae, no rashes or lesions. PSYCH: Positive for suicidal ideation, patient does have plan, denies homicidal ideation, no hallucinations. Does not feeling very anxious. Initial Vital Signs Initial Vital Signs: Vital Signs Temperature 98.9 F 10/31/25 16:15 Pulse Rate 116 H 10/31/25 16:15 Respiratory Rate 18 10/31/25 16:15 Blood Pressure 128/57 L 10/31/25 16:15 Pulse Oximetry 97 10/31/25 16:15 Oxygen Delivery Method Room Air 10/31/25 16:15 <Sanjeev Hyde MD - Last Filed: 11/01/25 04:03> Initial Vital Signs Initial Vital Signs: Vital Signs Temperature 98.9 F 10/31/25 16:15 Pulse Rate 116 H 10/31/25 16:15 Respiratory Rate 18 10/31/25 16:15 Blood Pressure 128/57 L 10/31/25 16:15 Pulse Oximetry 97 10/31/25 16:15 Oxygen Delivery Method Room Air 10/31/25 16:15 Course <Bushra Heath DO - Last Filed: 11/01/25 08:12> Orders Ordered: Discontinued Medications Hydroxyzine HCl (Hydroxyzine Hcl 25 Mg Tablet) 50 mg PO NOW ONE Stop: 10/31/25 20:16 Last Admin: 10/31/25 20:20 Dose: 50 mg Documented By: ABRAHAM Vital Signs Vital signs: Vital Signs - 8 hr 10/31/25 21:05 Pulse Rate 77 Respiratory Rate 20 Blood Pressure 106/57 L Pulse Oximetry 99 Oxygen Delivery Method Room Air <Sanjeev Hyde MD - Last Filed: 11/01/25 04:03> Orders Ordered: Discontinued Medications Hydroxyzine HCl (Hydroxyzine Hcl 25 Mg Tablet) 50 mg PO NOW ONE Stop: 10/31/25 20:16 Last Admin: 10/31/25 20:20 Dose: 50 mg Documented By: ABRAHAM Vital Signs Vital signs: Vital Signs - 8 hr 10/31/25 21:05 Pulse Rate 77 Respiratory Rate 20 Blood Pressure 106/57 L Pulse Oximetry 99 Oxygen Delivery Method Room Air MDM - Psych <Bushra C Mank, DO - Last Filed: 11/01/25 08:12> Lab Data 10/31/25 17:15 10/31/25 17:15 Labs: Lab Results 10/31/25 10/31/25 10/31/25 Range/Units 17:06 17:15 17:22 WBC 7.6 (4.5-11.0) X10^3/uL RBC 4.60 (4.5-5.9) X10^6/uL Hgb 14.3 (13.5-17.5) g/dL Hct 40.9 L (41-53) % MCV 89.0 (80-100) fL MCH 31.0 (26-34) PG MCHC 34.8 (30-36) % RDW 13.0 (11.6-14.8) % Plt Count 259 (150-400) X10^3/uL Neut % (Auto) 69.3 (50-75) % Lymph % (Auto) 22.2 L (25-40) % [place] % (Auto) 6.7 (3-14) % Eos % (Auto) 1.2 L (2-4) % Baso % (Auto) 0.6 (0-2) % Neut # (Auto) 5200 (4188-3081) /uL Lymph # (Auto) 1700 (8495-4886) /uL [place] # (Auto) 500 (0-900) /uL Eos # (Auto) 100 (0-450) /uL Baso # (Auto) 0 (0-100) /uL Sodium 138 (137-145) mmol/L Potassium 4.0 (3.4-5.1) mmol/L Chloride 104 (98-107) mmol/L Carbon Dioxide 24 (22-32) mmol/L BUN 16 (9-20) mg/dL Creatinine 0.85 (0.66-1.25) mg/dL Estimated GFR > 60 (>60) mL/min BUN/Creatinine Ratio 18.8 (6-22) Glucose 100 H (70-99) mg/dL Calcium 9.4 (8.4-10.2) mg/dL Total Bilirubin 0.5 (0.2-1.3) mg/dL AST 20 (17-59) IU/L ALT 14 (<50) IU/L Alkaline Phosphatase 63 (38-126) U/L Total Protein 8.1 (6.3-8.2) g/dL Albumin 4.9 (3.5-5.0) g/dL Globulin 3.2 (1.7-4.1) g/dL Albumin/Globulin Ratio 1.5 (1.0-2.8) TSH 0.82 (0.47-4.68) uIU/mL Urine Color Yellow Urine Appearance Clear Urine pH 7.0 (4.5-8.0) Ur Specific [place] 1.020 (1.000-1.035) Urine Protein Trace H (Negative) Urine Glucose (UA) Negative (Negative) g/dL Urine Ketones 2+ H (NEGATIVE) Urine Occult Blood Negative (Negative) Urine Nitrate Negative (Negative) Urine Bilirubin 1+ H (NEGATIVE) Ur Bilirubin Confirm Negative (Negative) Urine Urobilinogen 1.0 (0.2) E.U./dL Ur Leukocyte Esterase Negative (NEGATIVE) Urine RBC None seen (0-5/HPF) Urine WBC 0-1/hpf (0-5/HPF) Ur Squamous Epith Cells None seen (0-5/HPF) Urine Bacteria None seen (None) Urine Mucus 1+ H (Negative) Ur Culture Indicated? Cult not indicated Vol Urine Centrifuged 10ml (spun) Salicylates < 1.0 (<20) mg/dL U Opiates 300ng/mL cut Negative (Negative) Ur Oxycodone Screen Negative (Negative) Urine Methadone Screen Negative (Negative) Acetaminophen < 10 (10-30) ug/mL Ur Barbiturates Screen Negative (Negative) U Tricyclic Antidepress Negative (Negative) Ur Phencyclidine Scrn Negative (Negative) Ur Amphetamines Screen Negative (Negative) U Methamphetamines Scrn Negative (Negative) Ur MDMA Scrn (Ecstasy) Negative (Negative) U Benzodiazepines Scrn Negative (Negative) Urine Cocaine Screen Negative (Negative) U Marijuana (THC) Screen Positive H (Negative) Urine Specific [place] (Normal) Ethyl Alcohol < 10 (<10) mg/dL Ur Creatinine (Normal) SARS-CoV-2 (PCR) Negative (Negative) 10/31/25 Range/Units 17:22 WBC (4.5-11.0) X10^3/uL RBC (4.5-5.9) X10^6/uL Hgb (13.5-17.5) g/dL Hct (41-53) % MCV (80-100) fL MCH (26-34) PG MCHC (30-36) % RDW (11.6-14.8) % Plt Count (150-400) X10^3/uL Neut % (Auto) (50-75) % Lymph % (Auto) (25-40) % [place] % (Auto) (3-14) % Eos % (Auto) (2-4) % Baso % (Auto) (0-2) % Neut # (Auto) (2096-5609) /uL Lymph # (Auto) (3839-0846) /uL [place] # (Auto) (0-900) /uL Eos # (Auto) (0-450) /uL Baso # (Auto) (0-100) /uL Sodium (137-145) mmol/L Potassium (3.4-5.1) mmol/L Chloride (98-107) mmol/L Carbon Dioxide (22-32) mmol/L BUN (9-20) mg/dL Creatinine (0.66-1.25) mg/dL Estimated GFR (>60) mL/min BUN/Creatinine Ratio (6-22) Glucose (70-99) mg/dL Calcium (8.4-10.2) mg/dL Total Bilirubin (0.2-1.3) mg/dL AST (17-59) IU/L ALT (<50) IU/L Alkaline Phosphatase (38-126) U/L Total Protein (6.3-8.2) g/dL Albumin (3.5-5.0) g/dL Globulin (1.7-4.1) g/dL Albumin/Globulin Ratio (1.0-2.8) TSH (0.47-4.68) uIU/mL Urine Color Urine Appearance Urine pH Normal (4.5-8.0) Ur Specific [place] (1.000-1.035) Urine Protein (Negative) Urine Glucose (UA) (Negative) g/dL Urine Ketones (NEGATIVE) Urine Occult Blood (Negative) Urine Nitrate (Negative) Urine Bilirubin (NEGATIVE) Ur Bilirubin Confirm (Negative) Urine Urobilinogen (0.2) E.U./dL Ur Leukocyte Esterase (NEGATIVE) Urine RBC (0-5/HPF) Urine WBC (0-5/HPF) Ur Squamous Epith Cells (0-5/HPF) Urine Bacteria (None) Urine Mucus (Negative) Ur Culture Indicated? Vol Urine Centrifuged Salicylates (<20) mg/dL U Opiates 300ng/mL cut (Negative) Ur Oxycodone Screen (Negative) Urine Methadone Screen (Negative) Acetaminophen (10-30) ug/mL Ur Barbiturates Screen (Negative) U Tricyclic Antidepress (Negative) Ur Phencyclidine Scrn (Negative) Ur Amphetamines Screen (Negative) U Methamphetamines Scrn (Negative) Ur MDMA Scrn (Ecstasy) (Negative) U Benzodiazepines Scrn (Negative) Urine Cocaine Screen (Negative) U Marijuana (THC) Screen (Negative) Urine Specific [place] Normal (Normal) Ethyl Alcohol (<10) mg/dL Ur Creatinine Normal (Normal) SARS-CoV-2 (PCR) (Negative) Urine Dip Bedside Urine Glucose Negative Bedside Urine Bilirubin - Negative Bedside Urine Ketone ++ 40 Urine Specific [place] 1.015 Bedside Urine Occult Blood - Negative Bedside Urine pH 6.5 Bedside Urine Protein +/- 15 Bedside Urine Urobilinogen - Negative Bedside Urine Nitrite - Negative Bedside Urine Leukocytes - Negative Esterase MDM Narrative Medical decision making narrative: Labs show normal white count, hemoglobin 14.3 platelets of 259, chemistries are appropriate normal BUN creatinine glucose of 100 LFTs are normal, TSH Tylenol, salicylate and ETOH are negative, patient is positive for marijuana UDS is otherwise negative. COVID swab is negative. Patient medically cleared. Patient has active suicidal ideation with plan in place, initially reluctant for placement but after discussion is voluntary. I do think patient would benefit from placement. Discussed with the patient if he would like anything for medication he defers currently but discussed you can have something if he would like at a later point. Patient signed out to Dr. Hyde while awaiting chart review at psych facility. <Sanjeev Hyde MD - Last Filed: 11/01/25 04:03> Lab Data Labs: Lab Results 10/31/25 10/31/25 10/31/25 Range/Units 17:06 17:15 17:22 WBC 7.6 (4.5-11.0) X10^3/uL RBC 4.60 (4.5-5.9) X10^6/uL Hgb 14.3 (13.5-17.5) g/dL Hct 40.9 L (41-53) % MCV 89.0 (80-100) fL MCH 31.0 (26-34) PG MCHC 34.8 (30-36) % RDW 13.0 (11.6-14.8) % Plt Count 259 (150-400) X10^3/uL Neut % (Auto) 69.3 (50-75) % Lymph % (Auto) 22.2 L (25-40) % [place] % (Auto) 6.7 (3-14) % Eos % (Auto) 1.2 L (2-4) % Baso % (Auto) 0.6 (0-2) % Neut # (Auto) 5200 (1284-7237) /uL Lymph # (Auto) 1700 (8459-2395) /uL [place] # (Auto) 500 (0-900) /uL Eos # (Auto) 100 (0-450) /uL Baso # (Auto) 0 (0-100) /uL Sodium 138 (137-145) mmol/L Potassium 4.0 (3.4-5.1) mmol/L Chloride 104 (98-107) mmol/L Carbon Dioxide 24 (22-32) mmol/L BUN 16 (9-20) mg/dL Creatinine 0.85 (0.66-1.25) mg/dL Estimated GFR > 60 (>60) mL/min BUN/Creatinine Ratio 18.8 (6-22) Glucose 100 H (70-99) mg/dL Calcium 9.4 (8.4-10.2) mg/dL Total Bilirubin 0.5 (0.2-1.3) mg/dL AST 20 (17-59) IU/L ALT 14 (<50) IU/L Alkaline Phosphatase 63 (38-126) U/L Total Protein 8.1 (6.3-8.2) g/dL Albumin 4.9 (3.5-5.0) g/dL Globulin 3.2 (1.7-4.1) g/dL Albumin/Globulin Ratio 1.5 (1.0-2.8) TSH 0.82 (0.47-4.68) uIU/mL Urine Color Yellow Urine Appearance Clear Urine pH 7.0 (4.5-8.0) Ur Specific [place] 1.020 (1.000-1.035) Urine Protein Trace H (Negative) Urine Glucose (UA) Negative (Negative) g/dL Urine Ketones 2+ H (NEGATIVE) Urine Occult Blood Negative (Negative) Urine Nitrate Negative (Negative) Urine Bilirubin 1+ H (NEGATIVE) Ur Bilirubin Confirm Negative (Negative) Urine Urobilinogen 1.0 (0.2) E.U./dL Ur Leukocyte Esterase Negative (NEGATIVE) Urine RBC None seen (0-5/HPF) Urine WBC 0-1/hpf (0-5/HPF) Ur Squamous Epith Cells None seen (0-5/HPF) Urine Bacteria None seen (None) Urine Mucus 1+ H (Negative) Ur Culture Indicated? Cult not indicated Vol Urine Centrifuged 10ml (spun) Salicylates < 1.0 (<20) mg/dL U Opiates 300ng/mL cut Negative (Negative) Ur Oxycodone Screen Negative (Negative) Urine Methadone Screen Negative (Negative) Acetaminophen < 10 (10-30) ug/mL Ur Barbiturates Screen Negative (Negative) U Tricyclic Antidepress Negative (Negative) Ur Phencyclidine Scrn Negative (Negative) Ur Amphetamines Screen Negative (Negative) U Methamphetamines Scrn Negative (Negative) Ur MDMA Scrn (Ecstasy) Negative (Negative) U Benzodiazepines Scrn Negative (Negative) Urine Cocaine Screen Negative (Negative) U Marijuana (THC) Screen Positive H (Negative) Urine Specific [place] (Normal) Ethyl Alcohol < 10 (<10) mg/dL Ur Creatinine (Normal) SARS-CoV-2 (PCR) Negative (Negative) 10/31/25 Range/Units 17:22 WBC (4.5-11.0) X10^3/uL RBC (4.5-5.9) X10^6/uL Hgb (13.5-17.5) g/dL Hct (41-53) % MCV (80-100) fL MCH (26-34) PG MCHC (30-36) % RDW (11.6-14.8) % Plt Count (150-400) X10^3/uL Neut % (Auto) (50-75) % Lymph % (Auto) (25-40) % [place] % (Auto) (3-14) % Eos % (Auto) (2-4) % Baso % (Auto) (0-2) % Neut # (Auto) (9120-8638) /uL Lymph # (Auto) (1116-6975) /uL [place] # (Auto) (0-900) /uL Eos # (Auto) (0-450) /uL Baso # (Auto) (0-100) /uL Sodium (137-145) mmol/L Potassium (3.4-5.1) mmol/L Chloride (98-107) mmol/L Carbon Dioxide (22-32) mmol/L BUN (9-20) mg/dL Creatinine (0.66-1.25) mg/dL Estimated GFR (>60) mL/min BUN/Creatinine Ratio (6-22) Glucose (70-99) mg/dL Calcium (8.4-10.2) mg/dL Total Bilirubin (0.2-1.3) mg/dL AST (17-59) IU/L ALT (<50) IU/L Alkaline Phosphatase (38-126) U/L Total Protein (6.3-8.2) g/dL Albumin (3.5-5.0) g/dL Globulin (1.7-4.1) g/dL Albumin/Globulin Ratio (1.0-2.8) TSH (0.47-4.68) uIU/mL Urine Color Urine Appearance Urine pH Normal (4.5-8.0) Ur Specific [place] (1.000-1.035) Urine Protein (Negative) Urine Glucose (UA) (Negative) g/dL Urine Ketones (NEGATIVE) Urine Occult Blood (Negative) Urine Nitrate (Negative) Urine Bilirubin (NEGATIVE) Ur Bilirubin Confirm (Negative) Urine Urobilinogen (0.2) E.U./dL Ur Leukocyte Esterase (NEGATIVE) Urine RBC (0-5/HPF) Urine WBC (0-5/HPF) Ur Squamous Epith Cells (0-5/HPF) Urine Bacteria (None) Urine Mucus (Negative) Ur Culture Indicated? Vol Urine Centrifuged Salicylates (<20) mg/dL U Opiates 300ng/mL cut (Negative) Ur Oxycodone Screen (Negative) Urine Methadone Screen (Negative) Acetaminophen (10-30) ug/mL Ur Barbiturates Screen (Negative) U Tricyclic Antidepress (Negative) Ur Phencyclidine Scrn (Negative) Ur Amphetamines Screen (Negative) U Methamphetamines Scrn (Negative) Ur MDMA Scrn (Ecstasy) (Negative) U Benzodiazepines Scrn (Negative) Urine Cocaine Screen (Negative) U Marijuana (THC) Screen (Negative) Urine Specific [place] Normal (Normal) Ethyl Alcohol (<10) mg/dL Ur Creatinine Normal (Normal) SARS-CoV-2 (PCR) (Negative) Urine Dip Bedside Urine Glucose Negative Bedside Urine Bilirubin - Negative Bedside Urine Ketone ++ 40 Urine Specific [place] 1.015 Bedside Urine Occult Blood - Negative Bedside Urine pH 6.5 Bedside Urine Protein +/- 15 Bedside Urine Urobilinogen - Negative Bedside Urine Nitrite - Negative Bedside Urine Leukocytes - Negative Esterase MDM Narrative Medical decision making narrative: Labs show normal white count, hemoglobin 14.3 platelets of 259, chemistries are appropriate normal BUN creatinine glucose of 100 LFTs are normal, TSH Tylenol, salicylate and ETOH are negative, patient is positive for marijuana UDS is otherwise negative. COVID swab is negative. Patient medically cleared. Patient has active suicidal ideation with plan in place, initially reluctant for placement but after discussion is voluntary. I do think patient would benefit from placement. Discussed with the patient if he would like anything for medication he defers currently but discussed you can have something if he would like at a later point. Patient signed out to Dr. Hyde while awaiting chart review at psych facility. 10/31/[id number], Barrett. Signout from Dr Heath. 25-year-old male with recent suicidal ideation, thoughts of [place], reported prior self- harm attempts, no obvious physical injuries, screening lab studies unremarkable, awaiting requested voluntary inpatient bed placement. Assumed care. Initially declined antianxiety medication, now would like medication, oral hydroxyzine 50 mg dose prescribed. 2029, patient accepted to [facility] health Dr. Andrade, transfer paperwork signed. We will arrange ground transfer. Patient/family aware and agree with plan. Discharge Plan Departure Patient Disposition: Xfer Psychiatric Hosp Clinical Impression: Depression with suicidal ideation Prescriptions: No Action No Known Home Medications
[2025-10-31 18:20] LABS: Culture Indicated Urine Cult Not Indicated; Ictotest Urine Negative (Negative)
[2025-10-31 18:21] LABS: UR Morphine/Opiate cutoff 300 Negative (Negative); Ur Specific Gravity Normal (Normal); Urine MDMA Negative (Negative); Urine Methamphetamines Negative (Negative); Urine Tetrahydrocannabinol Positive (Negative); Urine Tricyclic Antidepressant Negative (Negative)
[2025-10-31 18:29] LABS: TSH w/ Reflex to FT4 0.82 uIU/mL (0.47-4.68)
--- NOTE | 2025-10-31 20:07 | PC.NURSE ---
report called to [facility] psych [phone] MAYLIN Anand
[2025-10-31 21:05] VITALS: BP 106/57; PULSE 77; RESP 20; O2SAT 99
== END 2025-10-31 21:33 ==
PROVIDERS: Emergency Medicine; Emergency Provider Emergency Medicine
DX: F32.A Depression, unspecified (principal); R45.851 Suicidal ideations
CPT/HCPCS: 80053; 80305; 80320; 80329; 81001; 81003; 84443; 85025; 87635; 99284; A9270; G0480